=== PATIENT | female | born 1950 ===

== ENCOUNTER → 2018-01-18 | Outpatient (CLI) | payer SELFPAY ==
[~2018-01-18] MED LIST: HORMONE REPLACEMENT; Percocet 7.5-31 EACH PO; [UNRECOGNIZED DRUG - REMARK] PO
== END ==
LOC: LAB SHORT 08:15 → LAB 08:15
DX: R10.30 Lower abdominal pain, unspecified (principal); R63.4 Abnormal weight loss; R19.7 Diarrhea, unspecified; R31.9 Hematuria, unspecified; N39.0 Urinary tract infection, site not specified; R76.8 Other specified abnormal immunological findings in serum; D70.9 Neutropenia, unspecified
CPT/HCPCS: 87177; 87209

== ENCOUNTER → 2018-01-22 | Outpatient (CLI) | payer SELFPAY ==
[2018-01-22 12:34] LABS: Test Name 130080
== END ==
LOC: LAB SHORT 08:15 → LAB 08:15 → LAB FUT 10-17 13:55
PROVIDERS: Internal Medicine Endocrinology, Diabetes & Metabolism
DX: R31.9 Hematuria, unspecified (principal); N93.0 Postcoital and contact bleeding; R76.8 Other specified abnormal immunological findings in serum; R10.30 Lower abdominal pain, unspecified; R63.4 Abnormal weight loss; R19.7 Diarrhea, unspecified; D72.1 Eosinophilia; D70.9 Neutropenia, unspecified
CPT/HCPCS: 87177; 87209; 87329; 88108